=== PATIENT | female | born 1990 | race Caucasian/White ===

== ENCOUNTER 2023-12-09 09:00 | Outpatient (CLI) | payer OTHER, SELFPAY ==
--- NOTE | 2023-12-09 11:00 | NEURO_ITS ---
Impression: # Complains of numbness of hands. Non-diabetic. # Bilateral moderate Carpal Tunnel Syndrome, right more than left. # No ulnar neuropathy. # Mildly neurogenic needle exam of APB?s. Nerve Conduction Studies Anti Sensory Summary Table Stim Site NR Peak (ms) P-T Amp (?V) Site1 Site2 Delta-P (ms) Dist (cm) Yannick (m/s) Left Median Anti Sensory (2-3nd Digit) Wrist 3.9 28.8 Wrist 2-3nd Digit 3.9 14.0 36 Wrist 4.1 53.5 Wrist 2-3nd Digit 3.9 14.0 36 Right Median Anti Sensory (2-3nd Digit) Wrist 4.4 54.6 Wrist 2-3nd Digit 4.4 14.0 32 Wrist 5.3 63.5 Wrist 2-3nd Digit 4.4 14.0 32 Left Radial Anti Sensory (Base 1st Digit) Wrist 1.8 15.3 Wrist Base 1st Digit 1.8 0.0 Right Radial Anti Sensory (Base 1st Digit) Wrist 2.1 24.0 Wrist Base 1st Digit 2.1 0.0 Left Ulnar Anti Sensory (5th Digit) Wrist 2.3 64.1 Wrist 5th Digit 2.3 14.0 61 Right Ulnar Anti Sensory (5th Digit) Wrist 2.3 65.7 Wrist 5th Digit 2.3 14.0 61 Motor Summary Table Stim Site NR Onset (ms) O-P Amp (mV) Site1 Site2 Delta-0 (ms) Dist (cm) Yannick (m/s) Left Median Motor (Abd Poll Brev) Wrist 4.8 2.6 Elbow Wrist 5.2 30.0 58 Elbow 10.0 2.2 Right Median Motor (Abd Poll Brev) Wrist 5.1 0.8 Elbow Wrist 4.7 27.0 57 Elbow 9.8 0.1 Left Ulnar Motor (Abd Dig Minimi) Wrist 2.0 8.2 A Elbow Wrist 5.7 32.0 56 A Elbow 7.7 6.9 Right Ulnar Motor (Abd Dig Minimi) Wrist 2.0 7.4 A Elbow Wrist 5.0 29.0 58 A Elbow 7.0 3.3 F Wave Studies NR F-Lat (ms) L-R F-Lat (ms) Left Median (Mrkrs) (Abd Poll Brev) 28.60 0.05 Right Median (Mrkrs) (Abd Poll Brev) 28.54 0.05 Left Ulnar (Mrkrs) (Abd Dig Min) 27.56 1.20 Right Ulnar (Mrkrs) (Abd Dig Min) 26.36 1.20 EMG Side Muscle Nerve Root Ins Act Fibs Amp Dur Recrt Comment Right 1stDorInt Ulnar C8-T1 Nml Nml Nml Nml Nml Right Ext Indicis Radial (Post Int) C7-8 Nml Nml Nml Nml Nml Right Ext Digitorum Radial (Post Int) C7-8 Nml Nml Nml Nml Nml Right BrachioRad Radial C5-6 Nml Nml Nml Nml Nml Right PronatorTeres Median C6-7 Nml Nml Nml Nml Nml Right Abd Poll Brev Median C8-T1 Nml Nml Nml >12ms +1 Right ABD Dig Min Ulnar C8-T1 Nml Nml Nml Nml Nml Left 1stDorInt Ulnar C8-T1 Nml Nml Nml Nml Nml Left Ext Indicis Radial (Post Int) C7-8 Nml Nml Nml Nml Nml Left Ext Digitorum Radial (Post Int) C7-8 Nml Nml Nml Nml Nml Left BrachioRad Radial C5-6 Nml Nml Nml Nml Nml Left PronatorTeres Median C6-7 Nml Nml Nml Nml Nml Left Abd Poll Brev Median C8-T1 Nml Nml Nml >12ms +1 Left ABD Dig Min Ulnar C8-T1 Nml Nml Nml Nml Nml MTDD
== END 2023-12-09 09:01 | disposition home or self-care (01) ==
PROVIDERS: PCP Clinical Nurse Specialist; Visit Provider Clinical Nurse Specialist
DX: G56.03 Carpal tunnel syndrome, bilateral upper limbs (principal)
CPT/HCPCS: 95886; 95911

== ENCOUNTER 2024-11-10 14:22 | Outpatient (CLI) | payer OTHER, SELFPAY ==
--- NOTE | ~2024-11-10 | US_ITS ---
EXAMINATION: US thyroid DATE: 11/10/2024 14:33 INDICATION: Nontoxic thyroid nodule TECHNIQUE: Multiple ultrasound images of the thyroid were obtained. COMPARISON: None. FINDINGS: The right thyroid lobe measures 4.6 x 1.5 x 1.2 cm. Within the right lobe of the thyroid gland is a 4.3 x 2.1 x 3.3 mm nodule: Composition -cystic Echogenicity -anechoic Shape - wider than tall Margin - smooth Echogenic foci - none. = TR 1, benign. The left thyroid lobe measures 4.0 x 1.3 x 1.1 cm. The isthmus measures 0.2cm in anterior to posterior dimension. There is otherwise normal echotexture and echogenicity throughout the remainder of the thyroid gland. No discrete nodules identified. Normal vascular flow is present. IMPRESSION: Benign nodule within the right lobe of the thyroid gland for which no further follow-up is needed. Reviewed, dictated and finalized at location A. IMPRESSION: Benign nodule within the right lobe of the thyroid gland for which no further f ollow-up is needed.
== END 2024-11-10 14:23 | disposition home or self-care (01) ==
PROVIDERS: PCP Clinical Nurse Specialist; Visit Provider Clinical Nurse Specialist
DX: E04.1 Nontoxic single thyroid nodule (principal); Z80.8 Family history of malignant neoplasm of other organs or systems
CPT/HCPCS: 76536